=== PATIENT | male | born 1965 | race Caucasian/White ===

== ENCOUNTER 2016-12-25 21:43 | Inpatient (IN) | payer MEDICAID, OTHER ==
[~2016-12-25] VITALS: Ht 180.3 cm; Wt 105.2 kg
[~2016-12-25 21:43] MED LIST: AMLO10TA4 PO; ENALAPRIL PO; METOPROLOL PO; WELLBUTRIN PO
[2016-12-25] MEDS ORDERED: ASPIRIN 81 MG TAB.CHEW PO ONE (22:00)
[2016-12-25 22:17] LABS: BASOPHILS % (AUTO) 0.6 % (0.0-2.0); EOSINOPHILS # (AUTO) 0.2 K/uL (0.0-0.7); EOSINOPHILS % (AUTO) 2.7 % (0.0-7.0); HEMATOCRIT 45.2 % (40-50); LYMPHOCYTES % (AUTO) 26.7 % (20.5-51.5); MEAN CORPUSCULAR HGB CONC 33 g/dL (32.0-37.0); MEAN CORPUSCULAR VOLUME 90.2 FL (82.0-92.0); MONOCYTES # (AUTO) 0.9 K/UL (0.1-1.30); MONOCYTES % (AUTO) 11.9 % (0.0-11.0); NEUTROPHILS # (AUTO) 4.5 K/UL (1.8-8.9); NEUTROPHILS % (AUTO) 58.1 % (38.5-71.5); PLATELET COUNT (AUTO) 179 K/UL (150-450); RED BLOOD CELL COUNT(AUTO) 5.01 MIL/UL (4.7-6.1); WHITE BLOOD COUNT (AUTO) 7.6 K/UL (4.0-11.2)
[2016-12-25] MEDS ORDERED: ASPIRIN 81 MG TAB.CHEW ONE (22:23)
[2016-12-25] MEDS ORDERED: NITROGLYCERIN OINT 1 GM PACKET TP ONE ×2 (22:30→22:40)
[2016-12-25 22:36] LABS: CREATININE 1.2 mg/dL (0.6-1.3); POTASSIUM 3.9 mmol/L (3.5-5.1)
--- NOTE | 2016-12-25 22:37 | NUR ---
Unable to get IV access after first attempt, patient refused to "get stuck all over the palce"
[2016-12-25 22:48] LABS: BILIRUBIN,DIRECT 0.2 mg/dL (0.0-0.2); BILIRUBIN,TOTAL 1.2 mg/dL (0.2-1.0); TOTAL PROTEIN, SERUM 6.6 g/dL (6.4-8.2)
--- NOTE | 2016-12-25 23:22 | NUR ---
Call placed to [facility]. Dr. Chowdhury ribbon tier.
[2016-12-25] MEDS ORDERED: HYDROCODONE/APAP 5-325MG TABLET PO ONE (23:30)
[2016-12-25] MEDS ORDERED: FLUO-120 PO (23:31)
[2016-12-25] MEDS ORDERED: ENAL20TA70 PO (23:31)
[2016-12-25] MEDS ORDERED: METO-304 PO (23:31)
[2016-12-25] MEDS ORDERED: TAMS-3 PO (23:31)
[2016-12-25] MEDS ORDERED: AMLO2.5T PO (23:31)
[2016-12-25] MEDS ORDERED: LAMO150T PO (23:31)
[2016-12-25] MEDS ORDERED: HYDROCODONE/APAP 5-325MG TABLET ONE (23:41)
--- NOTE | 2016-12-25 23:42 | NUR ---
REPORT CALLED TO JOMAR CASTRO
[2016-12-25] MEDS ORDERED: ACETAMINOPHEN 325 MG TABLET PO PRN (23:45)
[2016-12-25] MEDS ORDERED: ONDANSETRON 4 MG/2 ML VIAL IV PRN (23:45)
[2016-12-25] MEDS ORDERED: MAGNESIUM HYDROXIDE 30 ML LIQUID UDC PO PRN (23:45)
[2016-12-25] MEDS ORDERED: MORPHINE SULFATE 4 MG/1 ML DISP.SYRIN IV PRN (23:45)
--- NOTE | 2016-12-26 | NUR ---
TRANSFERED TO 2ND FLOOR VIA G[facility]NY WITH NO DISTRESS NOTED
--- NOTE | 2016-12-26 00:05 | NUR ---
PATIENT ADMITTED ON TELE UNIT UNDER THE CARE OF DR BAKER, INVENTORY LIST DONE.
[2016-12-26 00:21] VITALS: BP 140/86
[2016-12-26] MEDS ORDERED: ZOLPIDEM 5 MG TABLET PO PRN (00:30)
[2016-12-26 04:00] VITALS: BP 135/85
--- NOTE | 2016-12-26 05:17 | NUR ---
PATIENT SLEPT ON AND OFF ALL NIGHT, REFUSED TO TAKE SLEEPING MEDICATIONS, NO SOB NO CHEST PAIN, ASSESSED FOR CHEST PAIN STATED "HE HAS DULL PAIN ON CHEST" REFUSED TO TAKE PAIN MEDS. V/S STABLE AT THIS TIME. PATIENT RYTHM IS SINUS RYTHM.
[2016-12-26 06:39] LABS: BASOPHILS % (AUTO) 0.6 % (0.0-2.0); EOSINOPHILS # (AUTO) 0.2 K/uL (0.0-0.7); EOSINOPHILS % (AUTO) 3.5 % (0.0-7.0); HEMATOCRIT 41.4 % (40-50); LYMPHOCYTES # (AUTO) 2.1 K/UL (0.8-4.8); LYMPHOCYTES % (AUTO) 32.6 % (20.5-51.5); MEAN CORPUSCULAR HEMOGLOBIN 30.7 UUG (27.0-31.0); MEAN CORPUSCULAR HGB CONC 34 g/dL (32.0-37.0); MEAN CORPUSCULAR VOLUME 90.4 FL (82.0-92.0); MONOCYTES # (AUTO) 0.8 K/UL (0.1-1.30); MONOCYTES % (AUTO) 12.4 % (0.0-11.0); NEUTROPHILS # (AUTO) 3.3 K/UL (1.8-8.9); NEUTROPHILS % (AUTO) 50.9 % (38.5-71.5); PLATELET COUNT (AUTO) 166 K/UL (150-450); RED BLOOD CELL COUNT(AUTO) 4.57 MIL/UL (4.7-6.1); WHITE BLOOD COUNT (AUTO) 6.4 K/UL (4.0-11.2)
[2016-12-26] MEDS: HYDROCODONE/APAP 5-325MG TABLET PO PRN ×2 (06:42→20:53)
[2016-12-26 06:54] LABS: CREATININE 1.1 mg/dL (0.6-1.3); MAGNESIUM 2.1 mg/dL (1.8-2.4); PHOSPHOROUS 4.4 mg/dL (2.5-4.9); POTASSIUM 3.3 mmol/L (3.5-5.1); TOTAL PROTEIN, SERUM 5.8 g/dL (6.4-8.2)
[2016-12-26 07:08] LABS: THYROID STIMULATING HORMONE 1.967 mIU/mL (0.358-3.740)
[2016-12-26] MEDS ORDERED: HYDROCODONE/APAP 5-325MG TABLET ONE (07:08)
[2016-12-26] MEDS: AMLODIPINE 2.5 MG TABLET PO SCH (08:40)
[2016-12-26] MEDS: ASPIRIN 81 MG TAB.CHEW PO SCH (08:40)
[2016-12-26] MEDS: METOPROLOL SUCCINATE XL 50 MG TAB.SR.24H PO SCH (08:40)
[2016-12-26] MEDS: PANTOPRAZOLE SODIUM 40 MG TABLET.DR PO SCH (08:41)
[2016-12-26] MEDS: FLUOXETINE HCL 20 MG CAPSULE PO SCH (08:41)
[2016-12-26] MEDS: ENALAPRIL 10 MG TABLET PO SCH (08:41)
[2016-12-26] MEDS: LAMOTRIGINE 100 MG TABLET PO SCH (08:41)
[2016-12-26] MEDS ORDERED: Medication Not On Formulary EA (Lamotrigine 150 MG) PO SCH (09:00)
[2016-12-26] MEDS ORDERED: Medication Not On Formulary EA (Enalapril Maleate (Vasotec) 20 MG) PO SCH (09:00)
--- NOTE | 2016-12-26 09:11 | NUR ---
NORCO ON EMAR ORDERED FOR 0708, HOWEVER PT RECEIVED NORCO AT 0642 FROM GRADES 1 THROUGH 6 TEACHER. 0708 NORCO NON ADMINISTERED
[2016-12-26] MEDS ORDERED: POTASSIUM CHLORIDE 20 MEQ TAB.PRT.SR PO ONE (10:15)
[2016-12-26 11:54] VITALS: BP 128/87
[2016-12-26] MEDS ORDERED: NITROGLYCERIN 0.3 MG/TAB BOTTLE SL PRN (12:00)
[2016-12-26] MEDS ORDERED: MORPHINE SULFATE 2 MG/1 ML DISP.SYRIN IV PRN (12:45)
[2016-12-26] MEDS ORDERED: MORPHINE SULFATE 4 MG/1 ML DISP.SYRIN IV PRN (13:00)
[2016-12-26 15:43] VITALS: BP 133/89
--- NOTE | 2016-12-26 17:52 | NUR ---
PT RESTING IN BED, IN NO ACUTE DISTRESS. HAD CHEST PAIN THIS AM BUT SUBSIDED. PT HAD HEADACHE THROUGHOUT SHIFT. MORPHINE WAS GIVEN BUT TO LITTLE EFFECT. ADVISED PT TO TRY TYLENOL BUT PT DOES NOT WANT TO AT THIS TIME. ADVISED PT TO USE CALL LIGHT IF MIND CHANGES. PT AMBULATED IN [place] A COUPLE TIME THROUGHOUT SHIFT. ALL SAFETY AND COMFORT MEASURES MAINTAINED THROUGHOUT SHIFT, CALL LIGHT IN REACH
[2016-12-26 19:00] VITALS: BP 136/89
[2016-12-26] MEDS: TAMSULOSIN HCL 0.4 MG CAP.SR.24H PO SCH (20:34)
[2016-12-26] MEDS: DOCUSATE SODIUM 250 MG CAPSULE PO SCH (20:35)
--- NOTE | 2016-12-26 21:00 | NUR ---
patient awake, alert, oriented, in no acute distress,ambulatory,no chest pain, still with headache 12/22,[place] 5-325 mg po admin , continue closely monitor,sinus rhythm on monitor, bp stable.plan of care discuss with patient.
[2016-12-27 00:04] VITALS: BP 143/93
[2016-12-27 04:00] VITALS: BP 138/93
[2016-12-27] MEDS: PANTOPRAZOLE SODIUM 40 MG TABLET.DR PO SCH (05:45)
[2016-12-27 07:07] LABS: BASOPHILS % (AUTO) 0.4 % (0.0-2.0); EOSINOPHILS # (AUTO) 0.2 K/uL (0.0-0.7); EOSINOPHILS % (AUTO) 3.1 % (0.0-7.0); HEMOGLOBIN 14.2 G/DL (14.0-18.0); LYMPHOCYTES # (AUTO) 1.9 K/UL (0.8-4.8); LYMPHOCYTES % (AUTO) 28.7 % (20.5-51.5); MEAN CORPUSCULAR HGB CONC 33 g/dL (32.0-37.0); MONOCYTES # (AUTO) 0.8 K/UL (0.1-1.30); MONOCYTES % (AUTO) 11.4 % (0.0-11.0); NEUTROPHILS # (AUTO) 3.7 K/UL (1.8-8.9); NEUTROPHILS % (AUTO) 56.4 % (38.5-71.5); PLATELET COUNT (AUTO) 186 K/UL (150-450); RED BLOOD CELL COUNT(AUTO) 4.73 MIL/UL (4.7-6.1); WHITE BLOOD COUNT (AUTO) 6.6 K/UL (4.0-11.2)
[2016-12-27 08:28] LABS: BILIRUBIN,TOTAL 1.2 mg/dL (0.2-1.0); PHOSPHOROUS 3.7 mg/dL (2.5-4.9); POTASSIUM 3.7 mmol/L (3.5-5.1)
[2016-12-27] MEDS: HYDROCODONE/APAP 5-325MG TABLET PO PRN ×2 (08:45→14:08)
[2016-12-27] MEDS: LAMOTRIGINE 100 MG TABLET PO SCH (08:48)
[2016-12-27] MEDS: AMLODIPINE 2.5 MG TABLET PO SCH (08:49)
[2016-12-27] MEDS: FLUOXETINE HCL 20 MG CAPSULE PO SCH (08:49)
[2016-12-27] MEDS: ASPIRIN 81 MG TAB.CHEW PO SCH (08:49)
[2016-12-27] MEDS: METOPROLOL SUCCINATE XL 50 MG TAB.SR.24H PO SCH (08:50)
[2016-12-27] MEDS: ENALAPRIL 10 MG TABLET PO SCH (08:50)
[2016-12-27 11:05] VITALS: BP 126/89
[2016-12-27 15:06] VITALS: BP 122/92
--- NOTE | 2016-12-27 17:40 | NUR ---
PT. AMBULATING IN H[place]WAY THROUGHOUT THE DAY WITH NO INCREASED CP OR SOB. TELE SR. GOOD APPETITE. VODING WELL. DR. ARVIZU AT IN AFTERNOON AND DISCUSSED DISHARGE PLAN. TELE DC'D. PT. WANTS TO STAY OVERNIGHT FOR MONITORING. NO ACUTE DISTRESS NOTED.
[2016-12-27 19:00] VITALS: BP 137/88
[2016-12-27] MEDS: DOCUSATE SODIUM 250 MG CAPSULE PO SCH (20:40)
[2016-12-27] MEDS: TAMSULOSIN HCL 0.4 MG CAP.SR.24H PO SCH (20:40)
[2016-12-28 06:00] VITALS: BP 142/97
[2016-12-28] MEDS: PANTOPRAZOLE SODIUM 40 MG TABLET.DR PO SCH (06:35)
[2016-12-28] MEDS: ASPIRIN 81 MG TAB.CHEW PO SCH (08:06)
[2016-12-28] MEDS: LAMOTRIGINE 100 MG TABLET PO SCH (08:06)
[2016-12-28] MEDS: FLUOXETINE HCL 20 MG CAPSULE PO SCH (08:06)
[2016-12-28] MEDS: METOPROLOL SUCCINATE XL 50 MG TAB.SR.24H PO SCH (08:07)
[2016-12-28] MEDS: AMLODIPINE 2.5 MG TABLET PO SCH (08:07)
[2016-12-28] MEDS: ENALAPRIL 10 MG TABLET PO SCH (08:07)
[2016-12-28 11:12] LABS: *BILIRUBIN,URIN NEGATIVE (NEGATIVE); *BLOOD, URINE NEGATIVE (NEGATIVE); *CLARITY,URINE CLEAR (CLEAR); *COLOR,URINE YELLOW (YELLOW); *KETONES,URINE NEGATIVE (NEGATIVE); *PROTEIN,URINE NEGATIVE (NEGATIVE); *UROBILINOGEN,URINE 0.2 E.U./dl (NORMAL); LEUKOCYTE ESTERASE ,URINE NEGATIVE (NEGATIVE); NITRITE, URINE NEGATIVE (NEGATIVE); UGLUCOSE NEGATIVE (NEGATIVE)
[2016-12-28 11:32] VITALS: BP 136/97
[2016-12-28 11:46] LABS: BACTERIA,URINE NONE SEEN /HPF (NONE SEEN); MUCUS,URINE FEW /LPF (0-FEW); RBC,URINE 0-3 /HPF (0-3); SQUAMOUS EPITHELIAL CELL,UR FEW /HPF (NONE SEEN); URINE AMORPHOUS PHOSPHATES FEW /HPF; WBC,URINE 0-3 /HPF (0-3)
--- NOTE | 2016-12-28 13:08 | NUR ---
DISCHARGE PROTOCOL FOLLOWED, IV TAKEN OUT WITH NO REDNESS OR IRRITATION NOTED. DISCHARGE EDUCATION PROVIDED, PT VERBALIZED UNDERSTANDING. ALL BELONGINGS ACCOUNTED FOR AND SENT HOME WITH PT. ID BAND REMOVED, PT LEFT AMBULATORY IN PRIVATE CAR.
== END 2016-12-28 13:05 | disposition home or self-care (01) | DRG 203 ==
LOC: ER 21:44 → TELE 23:54 → MED 12-27 17:05
PROVIDERS: ADMIT Internal Medicine; ATTEND Internal Medicine
DX: M94.0 Chondrocostal junction syndrome [Tietze] (principal); E88.09 Other disorders of plasma-protein metabolism, not elsewhere classified; F32.9 Major depressive disorder, single episode, unspecified; E78.5 Hyperlipidemia, unspecified; Z80.0 Family history of malignant neoplasm of digestive organs; N40.0 Benign prostatic hyperplasia without lower urinary tract symptoms; Z79.899 Other long term (current) drug therapy; E87.6 Hypokalemia; R91.8 Other nonspecific abnormal finding of lung field; Z87.440 Personal history of urinary (tract) infections; R73.03 Prediabetes
CPT/HCPCS: 36415; 70030-TC; 71010; 71250; 83735; 84100; 84443; 85025; 85730; 87086; 93005; 93307; A4663; J2270; J2405

== ENCOUNTER 2017-09-09 13:58 | Emergency (ER) | payer MEDICAID ==
[~2017-09-09] VITALS: Ht 180.3 cm; Wt 106.1 kg
[~2017-09-09 13:58] MED LIST changes: -AMLO10TA4 PO; +AMLO2.5T PO; +ENAL20TA70 PO; -ENALAPRIL PO; +FLUO-120 PO; +LAMO150T PO; +METO-357 PO; -METOPROLOL PO; +TAMS-3 PO; -WELLBUTRIN PO
[2017-09-09 14:57] LABS: *BILIRUBIN,URIN NEGATIVE (NEGATIVE); *BLOOD, URINE NEGATIVE (NEGATIVE); *CLARITY,URINE CLEAR (CLEAR); *COLOR,URINE DARK YELLOW (YELLOW); *KETONES,URINE NEGATIVE (NEGATIVE); *PROTEIN,URINE NEGATIVE (NEGATIVE); *UROBILINOGEN,URINE 0.2 E.U./dl (NORMAL); LEUKOCYTE ESTERASE ,URINE NEGATIVE (NEGATIVE); MUCUS,URINE MANY /LPF (0-FEW); NITRITE, URINE NEGATIVE (NEGATIVE); UGLUCOSE NEGATIVE (NEGATIVE); WBC,URINE 0-3 /HPF (0-3)
--- NOTE | 2017-09-09 16:01 | NUR ---
Patient discharged to home in stable conditon. Written and verbal after care instructions given. Patient verbalizes understanding of instructions.pt walks in steady gait.
== END 2017-09-09 16:01 | disposition home or self-care (01) ==
LOC: ER 14:01
DX: M54.30 Sciatica, unspecified side (principal); I10 Essential (primary) hypertension; Z79.899 Other long term (current) drug therapy
CPT/HCPCS: A4663

== ENCOUNTER 2024-01-13 12:59 | Emergency (ER) | payer MEDICAID, OTHER ==
[~2024-01-13] VITALS: Ht 180.3 cm; Wt 119.7 kg
[~2024-01-13 12:59] MED LIST changes: -AMLO2.5T PO; +AMLO2.5T4 PO; -FLUO-120 PO; +FLUO20CA42 PO; -LAMO150T PO; +LAMO150T6 PO
[2024-01-13 13:45] VITALS: BP 158/89; TEMP 98.6; O2SAT 98
== END 2024-01-13 13:45 | disposition home or self-care (01) ==
LOC: ER 12:59
DX: M54.50 Low back pain, unspecified (principal); I10 Essential (primary) hypertension; Z79.899 Other long term (current) drug therapy
CPT/HCPCS: A4606; A4663

== ENCOUNTER 2024-08-11 07:41 | Emergency (ER) | payer OTHER ==
[~2024-08-11] VITALS: Ht 180.3 cm; Wt 127.9 kg
[2024-08-11] MEDS ORDERED: CLONIDINE HCL 0.2 MG TABLET ONE (08:27)
[2024-08-11] MEDS: CLONIDINE HCL 0.2 MG TABLET PO ONE (08:28)
[2024-08-11 08:37] LABS: BASOPHILS # (AUTO) 0.1 K/UL (0.0-0.2); BASOPHILS % (AUTO) 0.9 % (0.0-2.0); EOSINOPHILS # (AUTO) 0.2 K/uL (0.0-0.7); EOSINOPHILS % (AUTO) 3.2 % (0.0-7.0); HEMATOCRIT 51.9 % (36.7-47.1); HEMOGLOBIN 17.5 g/dL (12.5-16.3); LYMPHOCYTES # (AUTO) 1.6 K/uL (0.8-4.8); LYMPHOCYTES % (AUTO) 26.6 % (20.5-51.5); MEAN CORPUSCULAR HEMOGLOBIN 31.4 uug (23.8-33.4); MEAN CORPUSCULAR HGB CONC 34 g/dL (32.5-36.3); MEAN CORPUSCULAR VOLUME 93.1 fL (73.0-96.2); MONOCYTES # (AUTO) 0.6 K/uL (0.1-1.30); MONOCYTES % (AUTO) 10.1 % (0.0-11.0); NEUTROPHILS # (AUTO) 3.6 K/uL (1.8-8.9); NEUTROPHILS % (AUTO) 59.2 % (38.5-71.5); PLATELET COUNT (AUTO) 163 K/uL (152-348); RED BLOOD CELL COUNT(AUTO) 5.57 MIL/uL (4.06-5.63); RED CELL DISTRIBUTION WIDTH 14.1 % (12.1-16.2); WHITE BLOOD COUNT (AUTO) 6.1 K/uL (3.6-10.2)
[2024-08-11] MEDS ORDERED: CLON0.1T (08:38)
[2024-08-11] MEDS ORDERED: CARV25TA2 PO (08:38)
[2024-08-11] MEDS ORDERED: HYDR25TA4 PO (08:38)
[2024-08-11 08:40] LABS: DIFFERENTIAL COMMENT 1
[2024-08-11] MEDS ORDERED: FURO40TA5 PO (08:48)
[2024-08-11] MEDS ORDERED: LISI-659 PO (08:48)
[2024-08-11] MEDS ORDERED: ONDA4TAB5 SL (08:48)
[2024-08-11] MEDS ORDERED: ATOR20TA PO (08:48)
[2024-08-11] MEDS ORDERED: EMPA25TA PO (08:48)
[2024-08-11] MEDS ORDERED: DIAZ10TA PO (08:48)
[2024-08-11] MEDS ORDERED: DULA0.75 SQ (08:48)
[2024-08-11 08:52] LABS: CALCIUM 8.8 mg/dL (8.5-10.1); CARBON DIOXIDE 28 mmol/L (21-32); CHLORIDE 103 mmol/L (98-107); CREATININE 1.1 mg/dL (0.6-1.3); GLUCOSE 172 mg/dL (74-106); POTASSIUM 3.8 mmol/L (3.5-5.1); SODIUM SERUM 140 mmol/L (136-145); UREA NITROGEN, BLOOD 17 mg/dL (7-18)
[2024-08-11 09:05] LABS: ALANINE AMINOTRANSFERASE 40 U/L (16-63); ALBUMIN 3.6 g/dL (3.4-5.0); ALKALINE PHOSPHATASE 61 U/L (50-136); ASPARTATE AMINOTRANSFERASE 34 U/L (15-37); BILIRUBIN,DIRECT 0.3 mg/dL (0.0-0.2); BILIRUBIN,TOTAL 1.5 mg/dL (0.2-1.0); NT-PRO BNP 44 pg/mL (0-125); TOTAL PROTEIN, SERUM 6.8 g/dL (6.4-8.2)
[2024-08-11] MEDS ORDERED: AZIT500T PO (09:35)
[2024-08-11] MEDS ORDERED: ALBU8.5H8 INH (09:35)
[2024-08-11] MEDS ORDERED: PRED50TA PO (09:35)
[2024-08-11 09:41] VITALS: BP 152/113; O2SAT 94
== END 2024-08-11 09:41 | disposition home or self-care (01) ==
LOC: ER 07:41
DX: J18.9 Pneumonia, unspecified organism (principal); E11.9 Type 2 diabetes mellitus without complications; E78.5 Hyperlipidemia, unspecified; I11.9 Hypertensive heart disease without heart failure; Z79.52 Long term (current) use of systemic steroids; Z79.84 Long term (current) use of oral hypoglycemic drugs; Z79.85 Long-term (current) use of injectable non-insulin antidiabetic drugs; Z79.899 Other long term (current) drug therapy; Z20.822 Contact with and (suspected) exposure to COVID-19; Z88.7 Allergy status to serum and vaccine
CPT/HCPCS: 36415; 71045; 84484; 85025; 85651; 85730; A4606; A4663

== ENCOUNTER 2025-05-21 13:12 | Emergency (ER) | payer OTHER ==
[~2025-05-21] VITALS: Ht 180.3 cm; Wt 122.9 kg
[~2025-05-21 13:12] MED LIST changes: +ALBU8.5H8 INH; +ATOR20TA PO; +AZIT500T PO; +CARV25TA2 PO; +CLON0.1T; +DULA0.75 SQ; +EMPA25TA PO; -FLUO20CA42 PO; +FURO40TA5 PO; +HYDR25TA4 PO; +LISI-659 PO; +ONDA4TAB5 SL; +PRED50TA PO; -TAMS-3 PO; +TAMS0.4C PO; +[UNRECOGNIZED DRUG - CODE] PO; +[UNRECOGNIZED DRUG - CODE] PO
[2025-05-21 13:13] VITALS: BP 146/100
[2025-05-21 14:20] LABS: PLATELET COUNT (AUTO) 147 K/uL (152-348); RED BLOOD CELL COUNT(AUTO) 5.73 MIL/uL (4.06-5.63); RED CELL DISTRIBUTION WIDTH 14.4 % (12.1-16.2); WHITE BLOOD COUNT (AUTO) 7.0 K/uL (3.6-10.2)
[2025-05-21 14:32] LABS: ASPARTATE AMINOTRANSFERASE 28 U/L (15-37); CREATININE 1.0 mg/dL (0.6-1.3); SODIUM SERUM 141 mmol/L (136-145); TOTAL PROTEIN, SERUM 7.3 g/dL (6.4-8.2); UREA NITROGEN, BLOOD 14 mg/dL (7-18)
[2025-05-21] MEDS ORDERED: [UNRECOGNIZED DRUG - CODE] PO (14:46)
[2025-05-21 14:55] VITALS: BP 138/92; TEMP 207.9; O2SAT 92
== END 2025-05-21 15:05 | disposition home or self-care (01) ==
LOC: ER 13:22
DX: R07.89 Other chest pain (principal); J18.9 Pneumonia, unspecified organism; E11.9 Type 2 diabetes mellitus without complications; I11.9 Hypertensive heart disease without heart failure; F41.9 Anxiety disorder, unspecified; R06.02 Shortness of breath; E78.5 Hyperlipidemia, unspecified; K58.9 Irritable bowel syndrome, unspecified; N40.0 Benign prostatic hyperplasia without lower urinary tract symptoms; Z79.52 Long term (current) use of systemic steroids; Z79.84 Long term (current) use of oral hypoglycemic drugs; Z79.85 Long-term (current) use of injectable non-insulin antidiabetic drugs; Z79.899 Other long term (current) drug therapy; Z88.7 Allergy status to serum and vaccine
CPT/HCPCS: 36415; 71045; 84484; 85025; 85651; 85730; A4606; A4663